=== PATIENT | male | born 1940 | race Caucasian/White ===

== ENCOUNTER 2017-03-24 14:17 | Emergency (ER) | payer MEDICARE, BC ==
[2017-03-24 15:03] LABS: HEMATOCRIT 41.7 % (42.0-52.0); HEMOGLOBIN 13.9 gm/dl (14.0-18.0); MEAN CELL VOLUME 95.4 fl (81-97); MEAN CORPUSCULAR HEMOGLOBIN 31.8 pg (27-33); MEAN CORPUSCULAR HGB CONC 33.3 g/dl (32-36); MEAN PLATELET VOLUME 9.4 fl (7.4-10.4); PLATELET COUNT 143 K/uL (130-400); RED BLOOD COUNT 4.37 M/uL (4.40-5.70); RED CELL DISTRIBUTION WIDTH 12.9 % (11.5-14.5); WHITE BLOOD COUNT W/O DIFF 8.7 K/uL (4.2-12.2)
--- NOTE | 2017-03-24 15:09 | Emergency Department Record ---
History of Present Illness - General Chief Complaint: Dizziness Stated Complaint: DIZZINESS,LIGHT HEADED, Time Seen by Provider: 03/24/17 14:43 Source: Patient Mode of Arrival: Ambulatory Limitations: No limitations - History of Present Illness Initial Comments: pt states he hasnt felt right for the last few days. he has felt lightheaded and had to lower himself to the ground. MD Complaint: Dizziness Onset/Timin -: Days(s) Timing: Gradual onset Description: Lightheadedness, Off-balance History of Same: No History of Trauma: No Severity: Mild Improves With: Remaining still Worsens With: Movement, Position Associated Symptoms: Syncope - Tyesha Coma Scale Eye Response: (4) Open spontaneously Motor Response: (6) Obeys commands Verbal Response: (5) Oriented [place] Total: 15 - Symptoms of Stroke Symptoms of stroke: Dizziness - Related Data Previous Rx's Medication Instructions Recorded Atorvastatin Calcium [Lipitor] 20 mg PO DAILY #0 11/03/13 Sertraline HCl [Zoloft] 100 mg PO DAILY #0 11/03/13 Cyclobenzaprine HCl [Flexeril] 10 mg PO TID #30 tablet 05/11/16 Hydrocodone/Acetaminophen [[place] 1 tab PO Q6H PRN #20 tab 05/11/16 5mg/325mg] Allergies Allergy/AdvReac Type Severity Reaction Status Date / Time Cephalosporins Allergy Unknown unknown Verified 03/24/17 14:30 [CEPHALOSPORINS] Penicillins [PENICILLINS] Allergy Unknown unknown Verified 03/24/17 14:30 Sulfa (Sulfonamide Allergy unknown Verified 03/24/17 14:30 Antibiotics) Travel Screening - Travel/Exposure Within Last 30 Days Have you traveled within the last 30 days?: No Review of Systems Reviewed: No additional complaints except as noted below Constitutional: Reports: As per HPI. Denies: Chills, Fever, Malaise, Night sweats, Weakness, Weight change Eyes: Reports: As per HPI. Denies: Eye discharge, Eye pain, Photophobia, Vision change ENT: Reports: As per HPI. Denies: Congestion, Dental pain, Ear pain, Epistaxis , Hearing loss, Throat pain Respiratory: Reports: As per HPI. Denies: Cough, Dyspnea, Hemoptysis, Stridor, Wheezes Cardiovascular: Reports: As per HPI. Denies: Arrhythmia, Chest pain, Dyspnea on exertion, Edema, Murmurs, Orthopnea, Palpitations, Paroxysmal nocturnal dyspnea, Rheumatic Fever, Syncope Endocrine: Reports: As per HPI. Denies: Fatigue, Heat or cold intolerance, Polydipsia, Polyuria Gastrointestinal: Reports: As per HPI. Denies: Abdominal pain, Constipation, Diarrhea, Hematemesis, Hematochezia, Melena, Nausea, Vomiting Genitourinary: Reports: As per HPI. Denies: Dysuria, Frequency, Hematuria, Incontinence, Retention, Testicular pain, Testicular mass, Urgency Musculoskeletal: Reports: As per HPI. Denies: Arthralgia, Back pain, Gout, Joint swelling, Myalgia, Neck pain Skin: Reports: As per HPI. Denies: Bruising, Change in color, Change in hair/ nails, Lesions, Pruritus, Rash Neurological: Reports: As per HPI. Denies: Abnormal gait, Confusion, Headache, Numbness, Paresthesias, Seizure, Tingling, Tremors, Vertigo, Weakness Psychiatric: Reports: As per HPI. Denies: Anxiety, Auditory hallucinations, Depression, Homicidal thoughts, Suicidal thoughts, Visual hallucinations Hematological/Lymphatic: Reports: As per HPI. Denies: Anemia, Blood Clots, Easy bleeding, Easy bruising, Swollen glands Past Medical History - SOCIAL HISTORY Smoking Status: Former smoker Alcohol Use: None Drug Use: None - RESPIRATORY Hx Respiratory Disorders: Yes Hx Sleep Apnea: Yes Hx of CPAP: Yes - CARDIOVASCULAR Hx Cardio Disorders: Yes Hx CHF: Yes Hx Hypertension: Yes Comment:: cholesteral - NEURO Hx Neuro Disorders: Yes Hx CVA: Yes - GI Hx GI Disorders: No - Hx Genitourinary Disorders: No - ENDOCRINE Hx Endocrine Disorders: Yes Hx Diabetes: Yes - MUSCULOSKELETAL Hx Musculoskeletal Disorders: No - PSYCH Hx Psych Problems: No - HEMATOLOGY/ONCOLOGY Hx Hematology/Oncology Disorders: No Family Medical History Any Significant Family History?: Yes Hx Diabetes: Brother/Sister Physical Exam - General General Appearance: Alert, Oriented x3, Cooperative, Mild distress - Head Head exam: Normal inspection - Eye Eye exam: Normal appearance, PERRL, EOMI Pupils: Normal accommodation - ENT ENT exam: Normal exam, Mucous membranes moist, Normal external ear exam, Normal orophraynx Ear exam: Normal external inspection. negative: External canal tenderness Nasal Exam: Normal inspection. negative: Discharge, Sinus tenderness Mouth exam: Normal external inspection, Tongue normal Teeth exam: Normal inspection. negative: Dental caries Throat exam: Normal inspection. negative: Tonsillar erythema, Tonsillar exudate - Neck Neck exam: Normal inspection, Full ROM. negative: Tenderness - Respiratory Respiratory exam: Normal lung sounds bilaterally. negative: Respiratory distress - Cardiovascular Cardiovascular Exam: Regular rate, Normal rhythm, Normal heart sounds - GI/Abdominal GI/Abdominal exam: Soft, Normal bowel sounds. negative: Tenderness - Rectal Rectal exam: Deferred - exam: Deferred - Extremities Extremities exam: Normal inspection, Full ROM, Normal capillary refill. negative: Tenderness - Back Back exam: Reports: Normal inspection, Full ROM. Denies: Muscle spasm, Rash noted, Tenderness - Neurological Neurological exam: Alert, CN II-XII intact, Normal gait, Oriented X3 - Psychiatric Psychiatric exam: Normal affect, Normal mood - Skin Skin exam: Dry, Intact, Normal color, Warm Course Vital Signs 03/24/17 14:23 Temperature 98.0 F Pulse Rate 72 Respiratory 22 Rate Blood Pressure 142/84 Pulse Ox 97 - Reevaluation(s) Reevaluation #1: 03/24/17 17:09 pt feels better Medical Decision Making - Lab Data Result diagrams: 03/24/17 14:51 03/24/17 14:51 Lab Results 03/24/17 Range/Units 14:51 WBC 8.7 (4.2-12.2) K/uL RBC 4.37 L (4.40-5.70) M/uL Hgb 13.9 L (14.0-18.0) gm/dl Hct 41.7 L (42.0-52.0) % MCV 95.4 (81-97) fl MCH 31.8 (27-33) pg MCHC 33.3 (32-36) g/dl RDW 12.9 (11.5-14.5) % Plt Count 143 (130-400) K/uL MPV 9.4 (7.4-10.4) fl Eosinophils % Not Reportable Basophils % Not Reportable Disposition Disposition: Discharge Clinical Impression: Dehydration, Renal insufficiency Disposition: Home, Self-Care Condition: (1) Good Instructions: Dizziness (ED), Dehydration (ED), Impaired Kidney Function (ED) Additional Instructions: follow up with family docto. return sooner if worse. rest. push fluids Forms: Patient Portal Access Quality - Quality Measures Quality Measures: N/A - Blood Pressure Screening Does Patient Have Any of the Following: No Blood Pressure Classification: Pre-Hypertensive BP Reading Systolic Measurement: 142 Diastolic Measurement: 84 Screening for High Blood Pressure: < Pre-Hypertensive BP, F/U Documented > [ G8950] Pre-Hypertensive Follow-up Interventions: Follow-up with rescreen every year.
[2017-03-24 15:18] LABS: ALB/GLOB RATIO 1.3 (1.1-1.8); ALBUMIN 3.8 g/dL (4.0-5.0); ALKALINE PHOSPHATASE 93 U/L (40-129); ALT/SGPT 12 U/L (<41); AST/SGOT 19 U/L (10.0-50.0); BLOOD UREA NITROGEN 32 mg/dL (8-23); CREATININE 1.6 mg/dL (0.7-1.2); EST GLOMERULAR FILTRATION RATE 45 mL/min; GLUCOSE,RANDOM 197 mg/dL (74-109); TOTAL PROTEIN 6.8 g/dL (6.6-8.7)
[2017-03-24 15:20] LABS: TROPONIN I < 0.30 ng/mL (0.00-0.300)
[2017-03-24] MEDS ORDERED: 0.9 % SODIUM CHLORIDE 1,000 ML BAG IV ONE (15:40)
== END 2017-03-24 17:19 | disposition home or self-care (01) ==
LOC: ER 14:17
DX: E86.0 Dehydration (principal); N28.9 Disorder of kidney and ureter, unspecified
CPT/HCPCS: 80053; 83880; 84484; 85027; 96360; 99284; J7030

== ENCOUNTER 2018-03-08 13:10 | Emergency (ER) | payer MEDICARE ==
[2018-03-08] MEDS ORDERED: ACETAMINOPHEN 325 MG TAB PO ONE (13:25)
--- NOTE | 2018-03-08 13:29 | Emergency Department Record ---
History of Present Illness - General Chief complaint: Swelling of legs Stated complaint: FOOT AND LEG SWOLLEN Time Seen by Provider: 03/08/18 13:11 Source: Patient Mode of Arrival: Wheelchair Limitations: No limitations - History of Present Illness Initial comments: The patient is here due to R leg and foot pain for 3 days. He denies any fall or trauma. He states the foot and leg just began to hurt more than normal and the lower leg has become mildly painful. He denies any Cp, SOB, MALCOLM, sweating, or nausea. The patient states he may have had a leg blood clot many years ago but he is not sure. MD Complaint: Extremity pain, Extremity swelling Onset/Timin -: Days(s) Location: Right, Lower Leg Severity scale (1-10): 9 Quality: Aching Consistency: Constant Improves with: Nothing Worsens with: Nothing Associated Symptoms: Denies other symptoms - Related Data Previous Rx's Medication Instructions Recorded Atorvastatin Calcium [Lipitor] 20 mg PO DAILY #0 11/03/13 Sertraline HCl [Zoloft] 100 mg PO DAILY #0 11/03/13 Clindamycin HCl [Cleocin HCl] 300 mg PO TID #21 capsule 03/08/18 Allergies Allergy/AdvReac Type Severity Reaction Status Date / Time Cephalosporins Allergy Unknown unknown Verified 03/24/17 14:30 [CEPHALOSPORINS] Penicillins [PENICILLINS] Allergy Unknown unknown Verified 03/24/17 14:30 Sulfa (Sulfonamide Allergy unknown Verified 03/24/17 14:30 Antibiotics) Travel Screening - Travel/Exposure Within Last 30 Days Have you traveled within the last 30 days?: No Review of Systems Constitutional: Denies: Chills, Fever Eyes: Denies: Eye discharge ENT: Denies: Congestion Respiratory: Denies: Cough Cardiovascular: Denies: Arrhythmia Endocrine: Denies: Fatigue Gastrointestinal: Denies: Abdominal pain Genitourinary: Denies: Dysuria Musculoskeletal: Denies: Arthralgia, Back pain Skin: Denies: Bruising Past Medical History - SOCIAL HISTORY Smoking Status: Former smoker Alcohol Use: None Drug Use: None - RESPIRATORY Hx Respiratory Disorders: Yes Hx Sleep Apnea: Yes Hx of CPAP: Yes - CARDIOVASCULAR Hx Cardio Disorders: Yes Hx CHF: Yes Hx Hypertension: Yes Comment:: cholesteral - NEURO Hx Neuro Disorders: Yes Hx CVA: Yes - GI Hx GI Disorders: No - Hx Genitourinary Disorders: No - ENDOCRINE Hx Endocrine Disorders: Yes Hx Diabetes: Yes - MUSCULOSKELETAL Hx Musculoskeletal Disorders: No - PSYCH Hx Psych Problems: No - HEMATOLOGY/ONCOLOGY Hx Hematology/Oncology Disorders: No Family Medical History Any Significant Family History?: Yes Hx Diabetes: Brother/Sister Physical Exam - General General Appearance: Alert, Cooperative, No acute distress - Head Head exam: Normocephalic, Normal inspection - Eye Eye exam: Normal appearance, PERRL - ENT Throat exam: Normal inspection. negative: Tonsillar erythema, Tonsillar exudate - Neck Neck exam: Normal inspection, Full ROM. negative: Tenderness - Respiratory Respiratory exam: Normal lung sounds bilaterally. negative: Respiratory distress - Cardiovascular Cardiovascular Exam: Regular rate, Normal rhythm - GI/Abdominal GI/Abdominal exam: Soft, Normal bowel sounds. negative: Tenderness - Extremities Extremities exam: Calf tenderness (mild on R.), Pedal edema (1+ RLE.), Tenderness (There is significant swelling and tenderness to the dorsal foot. There are no signs of any acure infection and no erythema or warmth.), Other ( The DP pulses are equal bilaterally an 1-2+. Ther R foot is warm and NVI.). negative: Normal inspection (There is mild R lower leg swelling but no significant tenderness.), Full ROM, Joint swelling Course Vital Signs 03/08/18 13:12 Temperature 99.1 F Pulse Rate 56 L Respiratory 22 Rate Blood Pressure 137/73 Pulse Ox 99 - Reevaluation(s) Reevaluation #1: The patient is resting comfortably and is presently sleeping. He states his leg and foot feel better. I did discuss the neg xrays and doppler test. The patient will be treated for early cellulitis and will need to wear his home compression stockings. He is to see his PCP tomorrow or Monday for recheck. 03/08/18 16:08 Reevaluation #2: The patient is doing a lot better and feels ready for home. He is to see his PCP tomorrow or Monday for recheck. 03/08/18 16:42 Medical Decision Making - Data Complexity MDM Data: Labs Ordered and/or Reviewed, X-Ray Ordered and/or Reviewed - Lab Data Result diagrams: 03/08/18 13:35 03/08/18 13:35 - Radiology Data Radiology results: Report reviewed (R Foot: Neg for fx. Pos soft tissue swelling. R Leg Doppler: Neg.) Disposition Disposition: Discharge Clinical Impression: Swelling of lower leg Disposition: Home, Self-Care Condition: (2) Stable Instructions: Leg Edema (ED) Additional Instructions: Please take the Clindamycin for the possible foot cellulitis and please wear your compression stockings as directed. Use Tylenol for pain. Please see your family doctor for recheck Monday or Monday. Return to the ER for any worsening issues and please elevate your Right foot when possible. Prescriptions: Clindamycin HCl [Cleocin HCl] 300 mg PO TID #21 capsule Forms: Patient Portal Access Time of Disposition: 16:46 Quality - Quality Measures Quality Measures: N/A - Blood Pressure Screening View Details: Yes Does Patient Have Any of the Following: No Blood Pressure Classification: Pre-Hypertensive BP Reading Systolic Measurement: 141 Diastolic Measurement: 84 Screening for High Blood Pressure: < Pre-Hypertensive BP, F/U Documented > [ G8950] Pre-Hypertensive Follow-up Interventions: Referral to alternative/primary care provider.
[2018-03-08 13:45] LABS: HEMATOCRIT 44.3 % (42.0-52.0); HEMOGLOBIN 14.4 gm/dl (14.0-18.0); MEAN CELL VOLUME 96.1 fl (81-97); MEAN CORPUSCULAR HEMOGLOBIN 31.2 pg (27-33); MEAN CORPUSCULAR HGB CONC 32.5 g/dl (32-36); MEAN PLATELET VOLUME 9.2 fl (7.4-10.4); PLATELET COUNT 152 K/uL (130-400); RED BLOOD COUNT 4.61 M/uL (4.40-5.70); RED CELL DISTRIBUTION WIDTH 13.3 % (11.5-14.5); WHITE BLOOD COUNT W/O DIFF 10.3 K/uL (4.2-12.2)
[2018-03-08 13:58] LABS: PLATELET ESTIMATE NORMAL (NORMAL)
[2018-03-08 14:02] LABS: INR 1.1; PARTIAL THROMBOPLASTIN TIME 27.8 SECONDS (24.5-39.1); PROTHROMBIN TIME (PATIENT) 11.1 SECONDS (9.5-12.1)
[2018-03-08 14:06] LABS: BILIRUBIN,TOTAL 0.8 mg/dL (0.2-1.0); CREATININE 1.6 mg/dL (0.7-1.2)
[2018-03-08 14:07] LABS: TOTAL PROTEIN 7.4 g/dL (6.6-8.7)
[2018-03-08 14:12] LABS: ALB/GLOB RATIO 1.2 (1.1-1.8); ALBUMIN 4.1 g/dL (4.0-5.0)
[2018-03-08] MEDS ORDERED: CLINDAMYCIN 600MG/50ML PREMIX 600 MG/50 ML BAG IVPB ONE (16:07)
--- NOTE | 2018-03-12 13:07 | RADIOLOGY REPORT ---
EXAM: RIGHT FOOT HISTORY: RIGHT FOOT PAIN SINCE YESTERDAY. NO HISTORY OF TRAUMA. HISTORY OF GOUT AND DIABETES. TECHNIQUE: Three views of the right foot were obtained. Comparison: No prior right foot series. FINDINGS: Diffuse osteopenia is seen consistent with osteoporosis. Extensive vascular calcification suggesting diabetes. Diffuse soft tissue swelling about the foot. Mild degenerative change at the first MTP joint. No definite fracture or destructive lesion identified involving the right foot. There is a small plantar calcaneal spur. IMPRESSION: 1. VASCULAR CALCIFICATION. 2. DIFFUSE SOFT TISSUE SWELLING. 3. DEGENERATIVE CHANGE AT THE FIRST MTP JOINT. 4. SMALL PLANTAR CALCANEAL SPUR. JOB NUMBER: [id number] [facility]
--- NOTE | 2018-03-12 13:37 | US VENOUS DOPPLER REPORT ---
EXAM: EMERGENCY VENOUS DOPPLER ULTRASOUND OF THE RIGHT LOWER EXTREMITY HISTORY: RIGHT LEG PAIN AND SWELLING FOR THREE DAYS, HISTORY OF DVT. TECHNIQUE: Emergency venous Doppler ultrasound of the right lower extremity was performed with the routine deep venous anatomy evaluated from the level of the external iliac vein in the right inguinal region down through the calf utilizing color flow and spectral analysis Doppler. Compression and flow augmentation maneuvers were utilized as well in the thigh and popliteal region. Comparison: No prior venous Doppler ultrasound with which to compare. FINDINGS: The venous Doppler ultrasound of the right lower extremity appears negative with no DVT identified with color flow and spectral analysis Doppler. Compression and flow augmentation was evident as well in the thigh and popliteal regions. IMPRESSION: NEGATIVE VENOUS DOPPLER ULTRASOUND OF THE RIGHT LOWER EXTREMITY WITH NO DVT IDENTIFIED. JOB NUMBER: [id number] [facility]
== END 2018-03-08 17:03 | disposition home or self-care (01) ==
LOC: ER 13:10
DX: R22.42 Localized swelling, mass and lump, left lower limb (principal); M79.672 Pain in left foot; M79.662 Pain in left lower leg; E11.9 Type 2 diabetes mellitus without complications; I10 Essential (primary) hypertension; I50.9 Heart failure, unspecified; Z87.891 Personal history of nicotine dependence
CPT/HCPCS: 80053; 85027; 85610; 85730; 96365; 99284